=== PATIENT | female | born 1985 | race Caucasian/White ===

== ENCOUNTER 2025-02-06 11:54 | Emergency (ER) | payer OTHER ==
[~2025-02-06] VITALS: Ht 157.5 cm; Wt 86.4 kg
[2025-02-06 12:04] VITALS: TEMP 98.2
[2025-02-06] MEDS: ACETAMINOPHEN 500 MG TABLET PO ONE (13:09)
[2025-02-06] MEDS ORDERED: ACET-3385 PO (13:19)
[2025-02-06] MEDS ORDERED: IBUP-1492 PO (13:19)
[2025-02-06 14:17] VITALS: BP 131/81; PULSE 77; RESP 18; O2SAT 99
== END 2025-02-06 14:19 | disposition home or self-care (01) ==
LOC: EMS 11:57
DX: S60.222A Contusion of left hand, initial encounter (principal); W07.XXXA Fall from chair, initial encounter; Y93.89 Activity, other specified; Y92.89 Other specified places as the place of occurrence of the external cause; Y99.8 Other external cause status
CPT/HCPCS: 99284; 73110-TC; 73130-TC; Z7502; Z7610